=== PATIENT | female | born 1965 | race Caucasian/White ===

== ENCOUNTER 2020-10-06 12:46 | Day surgery (SDC) | payer OTHER ==
[~2020-10-06] VITALS: Ht 160 cm; Wt 62.7 kg
[~2020-10-06 12:46] MED LIST: ALPR1; CYCL10 PO; HYDACE5 PO; LEXAPRO; NAPR550 PO; TESTOSTERONE75 G1; XANAX; ZOLP5
== END 2020-10-06 15:25 | disposition home or self-care (01) ==
LOC: ORSCSDS 12:46
PROVIDERS: Surgery
PROC: 0DJD8ZZ Inspection of Lower Intestinal Tract, Via Natural or Artificial Opening Endoscopic (ICD-10-PCS; principal; 2020-10-06 14:00)
DX: Z12.11 Encounter for screening for malignant neoplasm of colon (principal); K57.30 Diverticulosis of large intestine without perforation or abscess without bleeding; F41.9 Anxiety disorder, unspecified; Z79.899 Other long term (current) drug therapy
CPT/HCPCS: J2704; J7120

== ENCOUNTER 2022-03-08 07:28 | Day surgery (SDC) | payer OTHER ==
[~2022-03-08] VITALS: Ht 160 cm; Wt 64.8 kg
== END 2022-03-08 10:09 | disposition home or self-care (01) ==
LOC: ORSCSDS 07:28
PROVIDERS: Internal Medicine Gastroenterology
PROC: 0DB58ZX Excision of Esophagus, Via Natural or Artificial Opening Endoscopic, Diagnostic (ICD-10-PCS; principal; 2022-03-08 08:45)
DX: R13.10 Dysphagia, unspecified (principal); K22.11 Ulcer of esophagus with bleeding; K22.2 Esophageal obstruction; F41.9 Anxiety disorder, unspecified; M85.80 Other specified disorders of bone density and structure, unspecified site; Z79.899 Other long term (current) drug therapy
CPT/HCPCS: 88305; 88312; J2250; J2704; J7120

== ENCOUNTER 2022-03-26 07:50 | Emergency (ER) | payer OTHER ==
[~2022-03-26] VITALS: Ht 160 cm; Wt 62.6 kg
[2022-03-26] MEDS ORDERED: OMEP20ER PO (08:03)
[2022-03-26] MEDS ORDERED: OXYC5 PO (09:46)
== END 2022-03-26 10:34 | disposition home or self-care (01) ==
LOC: ER 07:50
DX: S52.022A Displaced fracture of olecranon process without intraarticular extension of left ulna, initial encounter for closed fracture (principal); S42.212A Unspecified displaced fracture of surgical neck of left humerus, initial encounter for closed fracture; S62.653A Nondisplaced fracture of middle phalanx of left middle finger, initial encounter for closed fracture; S62.637A Displaced fracture of distal phalanx of left little finger, initial encounter for closed fracture; S60.042A Contusion of left ring finger without damage to nail, initial encounter; S90.112A Contusion of left great toe without damage to nail, initial encounter; S90.121A Contusion of right lesser toe(s) without damage to nail, initial encounter; K21.9 Gastro-esophageal reflux disease without esophagitis; W01.0XXA Fall on same level from slipping, tripping and stumbling without subsequent striking against object, initial encounter
CPT/HCPCS: 73030; 73080; 73140; A9270; J1170; J2405

== ENCOUNTER 2022-04-04 09:53 | Day surgery (SDC) | payer OTHER ==
[~2022-04-04] VITALS: Ht 160 cm; Wt 61.8 kg
[~2022-04-04 09:53] MED LIST changes: -ALPR1; +ALPR1 PO; +OMEP20ER PO; +OXYC5 PO; -ZOLP5; +ZOLP5 PO
[2022-04-04] MEDS ORDERED: Norco 5-325 Ta1 EACH PO (10:30)
--- NOTE | 2022-04-04 13:09 | NUR ---
1248- DR MACK AT BEDSIDE IN DAY SURGERY FOR NERVE BLOCK PLACEMENT. PATIENT PLACED IN RIGHT SIDE-LYING POSITION BY DR MACK AND US USED TO GUIDE PLACEMENT. TIME OUT DONE PRIOR TO START. PATIENT TOLERATED WELL.
--- NOTE | 2022-04-04 13:13 | NUR ---
WHILE PATIENT IN DAY SURGERY, PRIOR TO NERVE BLOCK, LUE ELEVATED ON PILLOW FOR COMFORT.
--- NOTE | 2022-04-04 17:37 | NUR ---
Discharge instructions reviewed with patient. Patient verbalizes understanding. Copy given to patient to take home. [employer] DRESSING AND JOHNNY WRAP IS C/D/I, CAP REFIL LESS THAN 3 SEC TO LEFT FINGERS, PT ABLE TO MOVE AND WIGGLE FINGERS, STATES THEY ARE NUMB FROM BLOCK. DENIES PAIN. TOLERATED WATER. UP TO VOID WITH SBA. Discharged via wheelchair to private car for ride home.
== END 2022-04-04 17:45 | disposition home or self-care (01) ==
LOC: ORSCMMR 09:53 → ORSCSDS 04-06 10:00
PROVIDERS: Orthopaedic Surgery
PROC: 0PSD04Z Reposition Left Humeral Head with Internal Fixation Device, Open Approach (ICD-10-PCS; principal; 2022-04-04 13:00)
PROC: 0PSL04Z Reposition Left Ulna with Internal Fixation Device, Open Approach (ICD-10-PCS; principal; 2022-04-04 13:00)
DX: S42.212A Unspecified displaced fracture of surgical neck of left humerus, initial encounter for closed fracture (principal); S52.031A Displaced fracture of olecranon process with intraarticular extension of right ulna, initial encounter for closed fracture; W01.0XXA Fall on same level from slipping, tripping and stumbling without subsequent striking against object, initial encounter; F41.9 Anxiety disorder, unspecified; Z79.899 Other long term (current) drug therapy
CPT/HCPCS: C1713; J0690; J1100; J1885; J2250; J2370; J2405; J2704; J3010; J7120

== ENCOUNTER 2022-05-06 07:33 | Day surgery (SDC) | payer OTHER ==
[~2022-05-06] VITALS: Ht 160 cm; Wt 57.8 kg
[~2022-05-06 07:33] MED LIST changes: +Norco 5-325 Ta1 EACH PO
[2022-05-06 08:37] LABS: BASOPHILS ABSOLUTE AUTO 0.03 K/mm3 (0.00-0.23); BASOPHILS PERCENT AUTO 1 % (0-2); EOSINOPHILS ABSOLUTE AUTO 0.08 K/mm3 (0.00-0.68); EOSINOPHILS PERCENT AUTO 2 % (0-6); Hematocrit 37.4 % (33.0-51.0); Hemoglobin 13.3 g/dL (11.5-16.0); IMMATURE GRAN ABSOLUTE AUTO 0.01 K/mm3 (0.00-0.10); IMMATURE GRAN PERCENT AUTO 0 % (0-1); LYMPHOCYTES ABSOLUTE AUTO 1.58 K/mm3 (0.84-5.20); LYMPHOCYTES PERCENT AUTO 30 % (21-46); MONOCYTES ABSOLUTE AUTO 0.37 K/mm3 (0.16-1.47); MONOCYTES PERCENT AUTO 7 % (4-13); Mean Corpuscular HGB 32.2 pg (26.0-34.0); Mean Corpuscular HGB Conc 35.6 g/dL (31.5-36.5); Mean Corpuscular Volume 91 fL (80-100); Mean Platelet Volume 10.4 fL (9.1-12.4); NEUTROPHILS ABSOLUTE AUTO 3.13 K/mm3 (1.96-9.15); NEUTROPHILS PERCENT AUTO 60 % (41-73); Platelet Count 248 K/mm3 (150-400); RDW Coefficient Variation 12.3 % (11.7-14.2); RDW Standard Deviation 40.7 fL (35.1-46.3); Red Blood Cell Count 4.13 M/mm3 (3.80-5.20)
[2022-05-06 08:54] LABS: Bun/Creatinine Ratio 8.7 (12.0-20.0); Calcium, Blood 9.5 mg/dL (8.5-10.1); Creatinine, Blood 0.58 mg/dL (0.40-1.00); Potassium, Blood 3.7 mmol/L (3.5-5.5)
--- NOTE | 2022-05-06 10:54 | NUR ---
1020 ASSUMED CARE A/O PT TELLS ME SHE HAS ANXIETY SO I AM ASSISITNG HER WITH VISUAL AND BREATHING TECH SHE IS PLEASANT AND COOPERTIVE WIGGLES FINGERS CAP REFILL WNL MEDICATING PRESCRIBED FOR PAIN
--- NOTE | 2022-05-06 12:15 | NUR ---
Patient up to Ambulate independently. Gait steady. Discharge instructions reviewed with patient. Patient verbalizes understanding. Copy given to patient to take home. Patient States Post-Procedure ride home has been arranged. Discharged via wheelchair to private car for ride home. PT TOLERATING PO. ARM BEEN ELEVATED ON PILLOW. PT ABLE TO WIGGLE FINGERS. DRESSING C/D/I. BEEN AT BEDSIDE.
== END 2022-05-06 12:15 | disposition home or self-care (01) ==
LOC: ORD 07:33 → ORSCMMR 07:33 → ORD 11:00
PROVIDERS: Orthopaedic Surgery
PROC: 0PPL04Z Removal of Internal Fixation Device from Left Ulna, Open Approach (ICD-10-PCS; principal; 2022-05-06 09:00)
DX: T84.498A Other mechanical complication of other internal orthopedic devices, implants and grafts, initial encounter (principal); K21.9 Gastro-esophageal reflux disease without esophagitis; F41.9 Anxiety disorder, unspecified; Z79.899 Other long term (current) drug therapy; Z88.1 Allergy status to other antibiotic agents; Y79.2 Prosthetic and other implants, materials and accessory orthopedic devices associated with adverse incidents
CPT/HCPCS: 80048; 85025; 87071; 87075; 87077; 87186; 87205; A9270; J0171; J0690; J1100; J1885; J2250; J2405; J2704; J3010; J7120

== ENCOUNTER 2023-09-19 10:37 | Day surgery (SDC) | payer OTHER ==
[~2023-09-19] VITALS: Ht 160 cm; Wt 60.9 kg
[~2023-09-19 10:37] MED LIST changes: +Lactated Ringer's 1,000 ML IV ONE; +propofoL 50 ML IV ONE
[2023-09-19] MEDS ORDERED: ZOLP5 (11:13)
[2023-09-19] MEDS ORDERED: Lactated Ringer's 1,000 ML IV ONE (11:59)
[2023-09-19] MEDS ORDERED: Lidocaine HCl 4% 5 ML SDA ONE (14:33)
[2023-09-19] MEDS ORDERED: Dexmedetomidine HCL 200 MCG / 2 ML ONE (14:36)
[2023-09-19] MEDS ORDERED: propofoL 0 ML IV ONE (14:36)
[2023-09-19 15:54] VITALS: BP 95/49
== END 2023-09-19 15:53 | disposition home or self-care (01) ==
LOC: ORSCSDS 10:37
PROVIDERS: Internal Medicine Gastroenterology
PROC: 0DB58ZX Excision of Esophagus, Via Natural or Artificial Opening Endoscopic, Diagnostic (ICD-10-PCS; principal; 2023-09-19 12:00)
DX: R13.10 Dysphagia, unspecified (principal); K21.9 Gastro-esophageal reflux disease without esophagitis; K22.2 Esophageal obstruction; K44.9 Diaphragmatic hernia without obstruction or gangrene; Q39.6 Congenital diverticulum of esophagus; F41.9 Anxiety disorder, unspecified; F32.A Depression, unspecified; Z79.899 Other long term (current) drug therapy
CPT/HCPCS: 88305; C1726; J2001; J2704; J7120